=== PATIENT | male | born 1970 | race Caucasian/White ===

== ENCOUNTER 2019-10-06 08:19 | Inpatient (IN) | payer OTHER, SELFPAY ==
[2019-10-06] VITALS (13 sets, daily range): BP systolic 110–145; BP diastolic 81–102; PULSE 71–97; RESP 18–36; TEMP 37.1–37.8; O2SAT 94–99; BMI 28.0
--- NOTE | ~2019-10-06 | XR_ITS ---
EXAMINATION: XR chest 1V portable DATE: 10/06/2019 09:17 INDICATION: Dyspnea and hypoxia. TECHNIQUE: frontal view of the chest was obtained. COMPARISON: None FINDINGS: Indistinct interstitial and mild patchy airspace opacities in the bilateral mid to lower lung zones m ost prominent at the left midlung zone. No pleural effusion or pneumothorax. The cardiomediastinal si lhouette is normal. Mild thoracic spondylosis. IMPRESSION: 1. Bilateral lung disease most prominent in the left midlung which could represent pulmonary edema an d/or pneumonia. Reviewed, dictated and finalized at location A. IMPRESSION: 1. Bilateral lung disease most prominent in the left midlung which could repres ent pulmonary edema and/or pneumonia.
--- NOTE | ~2019-10-06 | XR_ITS ---
EXAMINATION: XR chest 1V portable DATE: 10/07/2019 05:40 INDICATION: Pneumonia with bilateral pulmonary infiltrates and dyspnea. TECHNIQUE: frontal view of the chest was obtained. COMPARISON: Chest radiograph dated 10/06/2019 FINDINGS: No significant interval change in bilateral patchy airspace opacities consistent with multifocal pneu monia. No pleural effusion or pneumothorax. The cardiomediastinal silhouette is normal. Visualized kalpana azam and soft tissues are unremarkable. IMPRESSION: 1. No significant interval change in bilateral multifocal pneumonia. Reviewed, dictated and finalized at location A.
--- NOTE | ~2019-10-06 | XR_ITS ---
EXAMINATION: XR chest 1V portable DATE: 10/08/2019 05:32 INDICATION: Pulmonary infiltrates. TECHNIQUE: frontal view of the chest was obtained. COMPARISON: Chest radiograph dated 10/07/2019 FINDINGS: No significant change in bilateral patchy airspace opacities consistent with multifocal pneumonia. No pleural effusion or pneumothorax. The cardiomediastinal silhouette is normal. Visualized bones and s oft tissues are unremarkable. IMPRESSION: 1. No significant interval change in bilateral multifocal pneumonia. Reviewed, dictated and finalized at location A.
--- NOTE | ~2019-10-06 | XR_ITS ---
EXAMINATION: XR chest 1V portable DATE: 10/10/2019 09:19 INDICATION: Pneumonia. TECHNIQUE: A single frontal view of the chest was obtained. COMPARISON: Chest single view 10/08/2019 FINDINGS: There are patchy airspace opacities in all lung zones bilaterally. No pleural effusion or p neumothorax. The heart size is normal. IMPRESSION: 1. Diffuse lung disease with interval improvement, consistent with pneumonia. Reviewed, dictated and finalized at location A.
--- NOTE | 2019-10-06 08:21 | ED.URI ---
HPI - URI/Sore Throat General Chief Complaint: Upper Respiratory Infection Stated Complaint: sob/fever/cough Time Seen by Provider: 10/06/19 08:19 Source: patient and EMS Mode of arrival: EMS Limitations: no limitations History of Present Illness HPI Narrative: Patient is a 48-year-old male with no past medical history who presents for evaluation of shortness of breath. Patient states that he has been feeling unwell over the past 10 days, with worsening shortness of breath over the past 72 hours. Patient reports he has been in touch with his primary care physician Dr. Saucedo, prompted him to come to the emergency department for evaluation of shortness of breath. Patient reports fever, myalgias, fatigue, dry cough. No history of asthma, no recent sick contacts or recent travel. Patient has been self isolating at home over the past 10 days. Patient does not smoke. No history of drug use. No immunocompromised state. Patient denies any chest pain. No leg swelling. Related Data Home Medications Medication Instructions Recorded Confirmed atorvastatin 20 mg PO DAILY 10/06/19 lisinopril 10 mg PO DAILY 10/06/19 Allergies Allergy/AdvReac Type Severity Reaction Status Date / Time acetaminophen Allergy Vomiting Verified 10/06/19 08:26 Review of Systems Review of Systems: Narrative: CONSTITUTIONAL: Reports fever, chills, diaphoresis EYES: Denies visual changes, redness, or discharge. ENT: Earlier sore throat, now resolved, denies otalgia CARDIOVASCULAR: Denies chest pain, palpitations, or edema. RESPIRATORY: Reports cough and shortness of breath GASTROINTESTINAL: Denies abdominal pain, nausea, vomiting, denies diarrhea GENITOURINARY: Denies dysuria or hematuria. SKIN: Denies rash or itching. MUSCULOSKELETAL: Reports myalgias NEUROLOGIC: Denies headache, numbness, or weakness. [facility] Past Medical History Medical History (Updated 10/06/19 @ 10:17 by Rachael Carlin MD) Hypertension Social History Social History (Updated 10/06/19 @ 09:32 by Rachael Carlin MD) Smoking status: Never smoker Second hand tobacco smoke exposure: No Alcohol intake: never Substance use: never Gender identity (if verbalized by the patient): Male Comments PCP: Dr. Saucedo Exam Narrative: Exam Narrative: GENERAL: Awake, alert, conversant HEAD: Normocephalic, atraumatic. EYES: EOMI, conjunctiva clear ENT: Nares patent. Mucous membranes moist. NECK: Full range of motion CHEST: Hypoxic respiratory distress, speaking in full sentences, tachypnea HEART: Regular rate ABDOMEN: Non distended, non tender EXTREMITIES: Normal range of motion. No edema. SKIN: Warm, dry, no rash. NEURO: No focal deficits. Alert and oriented x3. Course Consultations Consultation #1: Discussed case with Dr. Saini and is aware of patient, no ICU admission at this point as patient tolerating 2L via NC Date: 10/06/19 Time: 09:11 Consultation #2: Discussed case with Dr. Zuniga and accepted admission. Date: 10/06/19 Time: 09:35 Vital Signs Vital signs: Vital Signs Temperature 37.6 C H 10/06/19 08:16 Pulse Rate 96 10/06/19 08:16 Respiratory Rate 30 H 10/06/19 08:16 Blood Pressure 145/102 H 10/06/19 08:16 Pulse Oximetry 97 10/06/19 08:16 Temperature 37.6 C H 10/06/19 08:16 Pulse Rate 82 10/06/19 10:53 Respiratory Rate 23 H 10/06/19 10:53 Blood Pressure 123/89 10/06/19 10:53 Pulse Oximetry 99 10/06/19 10:53 MDM - URI/Sore Throat MDM Narrative Medical decision making narrative: Patient presented to the emergency department for evaluation of shortness of breath. At the time of initial assessment, ABCs are intact, patient is in moderate respiratory distress, hypoxic on room air and placed on 2 L via nasal cannula which improved his oxygen saturations. Patient is febrile here influenza swabs are negative. He is tachypneic, and has evidence of bilateral pneumonia on chest x-ray. Patient symptoms with lymphopenia he
--- NOTE | 2019-10-06 08:22 | ECG_ITS ---
Measurements Intervals [place] Rate: 92 P: 35 OH: 130 QRS: -4 QRSD: 105 T: 22 QT: 350 QTc: 435 Interpretive Statements SINUS RHYTHM BORDERLINE T WAVE ABNORMALITY- INFERIOR LEADS BASELINE ARTIFACT- V1-V2 BORDERLINE ECG Electronically Signed On 10-06-2019 9:01:26 CDT by Jerry Swartz D.O.
[2019-10-06] MEDS: SODIUM CHLORIDE 0.9% IV 500 ML 999 ML IV CONT (08:45)
[2019-10-06 08:51] LABS: Basophils Percent Auto 0.1 % (0.2-1.2); Hematocrit 43.8 % (42.0-52.0); Hemoglobin 14.6 g/dL (14.0-18.0); Immature Granulocyte Absolute 0.03 K/mm3 (0.00-0.031); Immature Granulocyte Percent A 0.4 % (0-0.5); Lymphocytes Absolute Auto 1.48 K/mm3 (0.9-3.2); Lymphocytes Percent Auto 17.4 % (18.3-44.2); Mean Corpuscular HGB Conc 33.3 g/dl (32-36); Mean Corpuscular Volume 89.9 fl (80-100); Monocytes Absolute Auto 0.6 K/mm3 (0.1-0.6); Neutrophils Absolute Auto 6.4 K/mm3 (1.3-6.7); Neutrophils Percent Auto 75.1 % (45.5-73.1); Platelet Count Result 298 k/mm3 (150-375); Red Blood Count 4.87 M/mm3 (4.6-6.20); White Blood Count 8.5 K/mm3 (4.5-10.0)
[2019-10-06 08:55] LABS: Alveolar/Arterial O2 Gradient 63.4 mmHg; Base Excess ABG 1.3 mEq/l (+/-2.0); Carboxyhemoglobin 0.6 % THb (0-2.0); Fractional Inspired Oxygen 28 %; HCO3 ABG 24.1 mEq/l (22.0-26.0); Methemoglobin ABG 0.4 %THb (0-1.5); Oxygen Content ABG 20.6 %vol (16.0-22.0); Oxygen Saturation ABG 97.8 % (95.0-100.0); Oxyhemoglobin 96.2 % THb (90.0-100.0); PCO2 ABG 33.3 mmHg (35.0-45.0); PO2 ABG 96.9 mmHg (80.0-100.0); PO2 FiO2 Ratio Arterial Blood 3.46 %; Reduced Hemoglobin 2.8 %THb (0-5.0); Total Hemoglobin 15.2 g/dL (12.0-18.0); pH ABG 7.478 (7.350-7.450)
[2019-10-06 08:57] LABS: Device NASAL CANNULA; Modified Allen's Test Pass; Site Drawn LEFT RADIAL
[2019-10-06 09:02] LABS: Prothrombin Time 12.5 Seconds (11.1-14.7)
[2019-10-06 09:03] LABS: Partial Thromboplastin Time 26.4 SECONDS (22.3-36.8)
[2019-10-06 09:08] LABS: Alanine Aminotransferase 24 U/L (4-50); Albumin Level 4.1 g/dL (3.5-5.1); Alkaline Phosphatase 52 U/L (38-126); Aspartate Amino Transferase 54 U/L (17-59); Bilirubin,Total 0.7 mg/dL (0.2-1.3); Blood Urea Nitrogen 9 mg/dL (9-20); Calcium 8.1 mg/dL (8.4-10.2); Carbon Dioxide 22 mmol/L (22-30); Chloride 97 mmol/L (98-107); Estimated CRCL calculation 81 ml/min; Estimated Glomerular Filt Rate > 60; Glucose 139 mg/dL (75-110); Lactate Dehydrogenase 1035 U/L (313-618); Sodium 130 mmol/L (137-145)
[2019-10-06 09:14] LABS: NT Pro B Type Natriuretic Pept 27 PG/ML (5-100); Troponin I < 0.012 ng/mL (0.000-0.034)
[2019-10-06 09:23] LABS: CRP 14.1 mg/dL (<1.0)
--- NOTE | 2019-10-06 10:14 | PC.NURSE ---
Covid 19 swab obtained and sent to lab via [facility] at this time.
--- NOTE | 2019-10-06 11:32 | ADMGEN ---
This patient, Jim Rogers, was admitted to Intensive Care Unit-4. Patient/family oriented to hospital policies and general routines including ID bracelet, bed and alarms, visiting hours, pain management, procedures, bathroom and other care routines, personal items, smoking policy, room service/diet, and visiting hours. Valuables list has been completed. Information on how to activate the Rapid Response Team has been discussed. Patient/Family are encouraged to report perceived risks to care and to ask questions if they do not understand what they are told or what they should do.
--- NOTE | 2019-10-06 12:18 | PM.IMHP ---
H&P: HPI History of Present Illness Chief complaint: Pnemonia/respiratory failure Narrative: Date of visit 1129 Jim Rogers is a 48 year old hypertensive white male presented to the emergency room with increasing shortness breath over last 24-48 hours. He has been ill minimal cough fever myalgias for about 12 days. He has been in touch with his primary care provider and has been instructed to self quarantine. He has had fever as high as 102 and nausea but no diarrhea.. 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 No chest pain no hemoptysis and he is a nonsmoker. Review of Systems Review of Systems: Narrative: Constitutional weight is stable appetite was good until the present illness EYE no double vision or [place] Mouth no pharyngitis laryngitis Pulmonary as per present illness shortness of breath dry cough Cardio no chest pain or palpitation or pedal edema GI as per present no diarrhea abnormalities are medication chest no dysuria no hematuria Muscle skeletal no particular joint discomfort Integument no skin breakdown or rashes psych no overt depression PMFSH Past Medical History Medical History (Updated 10/06/19 @ 12:34 by Myles Zuniga MD) Hypertension Inguinal hernia Family History Family History (Updated 10/06/19 @ 12:07 by Myles Zuniga MD) Father Hypertension Mother Hypertension Other Unknown family medical history Social History Social History (Updated 10/06/19 @ 09:32 by Rachael Carlin MD) Smoking status: Never smoker Second hand tobacco smoke exposure: No Alcohol intake: never Substance use: never Gender identity (if verbalized by the patient): Male Spiritual care concerns: No Agree to blood products: Yes Meds Home Medications and Allergies Home Medications Medication Instructions Recorded Confirmed Type atorvastatin 20 mg PO DAILY 10/06/19 10/06/19 History lisinopril 10 mg PO DAILY 10/06/19 10/06/19 History Allergies Allergy/AdvReac Type Severity Reaction Status Date / Time acetaminophen Allergy Vomiting Verified 10/06/19 08:26 Vital Signs Vital Signs - 24 hr 10/06/19 08:16 10/06/19 09:38 10/06/19 10:14 Temperature 37.6 C H Pulse Rate 96 97 86 Respiratory Rate 30 H 25 H 35 H Blood Pressure 145/102 H 135/90 142/92 H Pulse Oximetry 97 94 97 10/06/19 10:53 Temperature Pulse Rate 82 Respiratory Rate 23 H Blood Pressure 123/89 Pulse Oximetry 99 Exam Narrative: Exam Narrative: Blood pressure 132/86 pulse is 86 and regular respirations 30 per minute satting 96% on 2 L nasal cannula temp 37.1? Pupils equal reactive to light sclera anicteric Patient is wearing a mask not removed check is mouth Neck supple no adenopathy thyromegaly or carotid bruits Lungs clear with very faint basilar crackles posteriorly no wheezing CV regular rate rhythm no murmurs Abdomen is soft nontender no masses Extremities without edema distal pulses are 2+ Neuro alert pleasant cooperative no focal deficits cranial nerves 2-12 are intact Integument no skin breakdown rashes Psych affect appropriate H&P: Results Labs Labs: Short CBC 10/06/19 Range/Units 08:40 WBC 8.5 (4.5-10.0) K/mm3 Hgb 14.6 (14.0-18.0) g/dL Hct 43.8 (42.0-52.0) % Plt Count 298 (150-375) k/mm3 BMP 10/06/19 08:40 Sodium 130 L Potassium 4.0 Chloride 97 L Carbon Dioxide 22 BUN 9 Creatinine 0.80 Glucose 139 H Calcium 8.1 L Cardiac Enzymes 10/06/19 Range/Units 08:40 Troponin I < 0.012 (0.000-0.034) ng/mL Liver Function 10/06/19 Range/Units 08:40 Total Bilirubin 0.7 (0.2-1.3) mg/dL AST 54 (17-59) U/L ALT 24 (4-50) U/L Alkaline Phosphatase 52 (38-126) U/L Albumin 4.1 (3.5-5.1) g/dL Assessment and Plan Assessment and plan (1) Acu
[2019-10-06 13:15] LABS: Add Urine Microscopic? YES; Appearance Urine Clear (Clear); Bilirubin Urine Negative (Negative); Blood Urine 1+ (Negative); Color Urine Straw (Yellow); Glucose Urine UA Negative (Negative); Ketones Urine Negative (Negative); Leukocyte Esterase Ur Negative LEU/UL (NEGATIVE); Nitrate Urine Negative (Negative); Protein Urine Negative (Negative); Urobilinogen Urine Negative mg/dL (<2.0); WBC Urine 0-3 /hpf (0-3)
[2019-10-06 13:18] LABS: Specific Grav Ur 1.004 (1.001-1.035)
[2019-10-06 13:38] LABS: Sodium Urine Random 17 meq/L
[2019-10-06] MEDS: ENOXAPARIN 40 MG/0.4 ML SYRINGE SUB-Q (21:22)
[2019-10-07] VITALS (14 sets, daily range): BP systolic 100–122; BP diastolic 76–97; PULSE 66–86; RESP 18–36; TEMP 36.9–37.2; O2SAT 93–99
[2019-10-07 04:43] LABS: Basophils Percent Auto 0.5 % (0.2-1.2); Eosinophils Absolute Auto 0.1 K/mm3 (0-0.3); Eosinophils Percent Auto 1.3 % (0-4.4); Hematocrit 46.5 % (42.0-52.0); Immature Granulocyte Absolute 0.03 K/mm3 (0.00-0.031); Immature Granulocyte Percent A 0.4 % (0-0.5); Lymphocytes Absolute Auto 3.75 K/mm3 (0.9-3.2); Lymphocytes Percent Auto 43.8 % (18.3-44.2); Mean Corpuscular HGB Conc 32.3 g/dl (32-36); Mean Corpuscular Hemoglobin 29.8 pg (26-34); Mean Corpuscular Volume 92.3 fl (80-100); Mean Platelet Volume 9.8 fl (7.4-10.4); Monocytes Absolute Auto 0.9 K/mm3 (0.1-0.6); Monocytes Percent Auto 10.9 % (2.6-8.5); Neutrophils Absolute Auto 3.7 K/mm3 (1.3-6.7); Neutrophils Percent Auto 43.1 % (45.5-73.1); Platelet Count Result 336 k/mm3 (150-375); Red Blood Count 5.04 M/mm3 (4.6-6.20); Red Cell Distribution Width 13.2 % (11.5-14.5); White Blood Count 8.6 K/mm3 (4.5-10.0)
[2019-10-07 04:55] LABS: Alanine Aminotransferase 27 U/L (4-50); Albumin Level 3.8 g/dL (3.5-5.1); Alkaline Phosphatase 49 U/L (38-126); Aspartate Amino Transferase 57 U/L (17-59); Bilirubin,Total 0.7 mg/dL (0.2-1.3); Blood Urea Nitrogen 11 mg/dL (9-20); Calcium 8.3 mg/dL (8.4-10.2); Carbon Dioxide 25 mmol/L (22-30); Chloride 101 mmol/L (98-107); Estimated CRCL calculation 81 ml/min; Estimated Glomerular Filt Rate > 60; Glucose 96 mg/dL (75-110); Lactate Dehydrogenase 1041 U/L (313-618); Potassium 4.4 mmol/L (3.4-5.0); Sodium 136 mmol/L (137-145)
[2019-10-07] MEDS: lisinopriL 10 MG TABLET PO (09:01)
[2019-10-07] MEDS: ATORVASTATIN 20 MG TABLET PO (09:01)
--- NOTE | 2019-10-07 14:23 | PM.IMPN ---
Progress Note: A&P Assessment and Plan (1) Acute respiratory failure with hypoxemia: Code(s): J96.01 - Acute respiratory failure with hypoxia Status: Acute Assessment and Plan: Secondary to pneumonia.. supported with 2 L nasal cannula. Continue to monitor treat underlying condition Stable and no worsening of condition today (2) Bilateral pneumonia: Qualifiers: Lung location: unspecified part of lung Pneumonia type: due to unspecified organism Qualified Code(s): J18.9 - Pneumonia, unspecified organism Code(s): J18.9 - Pneumonia, unspecified organism Status: Acute Assessment and Plan: Highly suspicious for covid with bilateral infiltrates, hypoxia, elevated LDH, (lymphopenia has resolved) Check urine antigens, blood cultures still pending, and empirically treating for community-acquired pneumonia with ceftriaxone and azithromycin (3) Hypertension: Code(s): I10 - Essential (primary) hypertension Status: Acute Assessment and Plan: Pressure adequately controlled continue GAVIOTA-inhibitor but decreased to only 5 daily since pressure is lower (4) Hyperlipidemia: Code(s): E78.5 - Hyperlipidemia, unspecified Status: Acute Assessment and Plan: Continue statin (5) DVT prophylaxis: Code(s): Z29.9 - Encounter for prophylactic measures, unspecified Status: Acute Assessment and Plan: Lovenox Subjective Date/time seen: 10/07/19 14:23 Interval history: Date of visit 10/06. 48-year-old hypertensive white male admitted with acute respiratory failure with hypoxia and bilateral pneumonia compatible with SARS-co-19 infection. Slept fairly well and no sob at rest. minimal cough and no GI symptoms Exam Narrative: Exam Narrative: Blood pressure 104/86 pulse is 82, respirations 24 per minute, temp of 36.9? and a T-max of 37.5? saturating 94% on 2 L Pupils equal reactive to light sclera anicteric Lungs clear hear no crackles CV regular rate rhythm Abdomen is soft nontender Extremities without edema good distal pulses Neuro alert cooperative no focal deficits Objective Data Vital Signs Vital Signs: Vital Signs - 24 hr 10/06/19 15:36 10/06/19 16:00 10/06/19 18:00 Temperature 37.8 C H Pulse Rate 82 91 93 Respiratory Rate 25 H Blood Pressure 118/81 Pulse Oximetry 94 10/06/19 20:00 10/06/19 21:29 10/06/19 22:00 Temperature 37.7 C H Pulse Rate 75 71 Respiratory Rate 18 Blood Pressure 110/94 H Pulse Oximetry 95 96 10/07/19 00:00 10/07/19 02:00 10/07/19 04:00 Temperature 37.2 C 37.1 C Pulse Rate 72 71 81 Respiratory Rate 19 18 Blood Pressure 119/86 118/97 H Pulse Oximetry 96 93 10/07/19 06:00 10/07/19 07:47 10/07/19 08:00 Temperature 36.9 C Pulse Rate 75 83 Respiratory Rate 24 H Blood Pressure 117/83 Pulse Oximetry 98 97 10/07/19 10:00 10/07/19 12:00 Temperature 36.9 C Pulse Rate 79 85 Respiratory Rate 26 H Blood Pressure 100/86 Pulse Oximetry 94 Intake/Output Intake/Output: Intake & Output 10/04/19 10/05/19 10/06/19 10/07/19 23:59 23:59 23:59 23:59 Intake Total 800 880 Output Total 550 500 Balance 250 380 Meds/Results Medications: Active Medications Generic Name Dose Route Start Last Admin Trade Name Freq PRN Reason Stop Dose Admin Atorvastatin Calcium 20 mg 10/07/19 09:00 10/07/19 09:01 Lipitor PO 20 mg DAILY [facility] Administration Enoxaparin Sodium 40 mg 10/06/19 21:00 10/06/19 21:22 Lovenox SUB-Q 40 mg HS [facility] Administration Azithromycin 500 mg in 250 mls @ 250 mls/hr 10/07/19 10:00 10/07/19 12:08 Zithromax IVPB 250 mls/hr DAILY@1000 [facility] Administration Lisinopril 5 mg 10/07/19 14:21 Prinivil PO DAILY [facility] Radiology Results: ITS Impressions Chest X-Ray 10/07/19 06:56 IMPRESSION: 1. No significant interval change in bilateral multifocal pneumonia. Labs Labs: Laboratory Results - la
[2019-10-07] MEDS: ENOXAPARIN 40 MG/0.4 ML SYRINGE SUB-Q (20:49)
[2019-10-08] VITALS (12 sets, daily range): BP systolic 112–125; BP diastolic 75–92; PULSE 65–91; RESP 17–30; TEMP 36.7–37.7; O2SAT 91–98
[2019-10-08] MEDS: ATORVASTATIN 20 MG TABLET PO (11:37)
[2019-10-08] MEDS: lisinopriL 5 MG TABLET PO (11:37)
[2019-10-08 16:11] LABS: Procalcitonin <0.10 ng/mL (<0.10)
--- NOTE | 2019-10-08 16:14 | PM.IMPN ---
Progress Note: A&P Assessment and Plan (1) Acute respiratory failure with hypoxemia: Code(s): J96.01 - Acute respiratory failure with hypoxia Status: Acute Assessment and Plan: Secondary to pneumonia.. supported with 2 L nasal cannula. Continue to monitor treat underlying condition Stable and no worsening of condition. Date of visit 10/07. 48-year-old hypertensive white male admitted with acute respiratory failure with hypoxia and bilateral pneumonia compatible with SARS-co-19 infection. Slept fairly well and no sob at rest. minimal cough and no GI symptoms, denies any fever or chills, Covid 19 test is pending, patient is treated for community-acquired pneumonia with Rocephin azithromycin Repeat chest x-ray today shows No significant interval change in bilateral multifocal pneumonia. Will continue present management reassess tomorrow (2) Bilateral pneumonia: Qualifiers: Lung location: unspecified part of lung Pneumonia type: due to unspecified organism Qualified Code(s): J18.9 - Pneumonia, unspecified organism Code(s): J18.9 - Pneumonia, unspecified organism Status: Acute Assessment and Plan: Highly suspicious for covid with bilateral infiltrates, hypoxia, elevated LDH, (lymphopenia has resolved) Check urine antigens, blood cultures still pending, and empirically treating for community-acquired pneumonia with ceftriaxone and azithromycin (3) Hypertension: Code(s): I10 - Essential (primary) hypertension Status: Acute Assessment and Plan: Pressure adequately controlled continue GAVIOTA-inhibitor but decreased to only 5 daily since pressure is lower (4) Hyperlipidemia: Code(s): E78.5 - Hyperlipidemia, unspecified Status: Acute Assessment and Plan: Continue statin (5) DVT prophylaxis: Code(s): Z29.9 - Encounter for prophylactic measures, unspecified Status: Acute Assessment and Plan: Lovenox Subjective Date/time seen: 10/08/19 16:14 Interval history: Date of visit 10/07. 48-year-old hypertensive white male admitted with acute respiratory failure with hypoxia and bilateral pneumonia compatible with SARS-co-19 infection. Slept fairly well and no sob at rest. minimal cough and no GI symptoms, denies any fever or chills, Covid 19 test is pending, patient is treated for community-acquired pneumonia with Rocephin azithromycin Repeat chest x-ray today shows No significant interval change in bilateral multifocal pneumonia. Will continue present management reassess tomorrow Review of Systems Review of Systems: All systems reviewed & are unremarkable except as noted in HPI and below Exam Const: General: comfortable and no acute distress HENMT: General nose exam: Normal nares present Mouth: Yes moist mucous membranes Eyes: General: appearance normal, both eyes and all related structures Sclera: sclerae normal Neck: Other: No retraction Resp: Other: Bilateral poor air entry with rhonchi Cardio: Rate: regular rate Rhythm: regular rhythm Skin: General skin exam: normal color Neuro: Speech: normal speech Sensory Exam: normal sensation Extrem: General: normal to inspection Psych: Affect: Anxious affect present Objective Data Vital Signs Vital Signs: Vital Signs - 24 hr 10/07/19 18:00 10/07/19 20:00 10/07/19 22:00 Temperature 98.5 F Pulse Rate 82 80 70 Respiratory Rate 18 Blood Pressure 122/76 Pulse Oximetry 99 10/07/19 22:41 10/08/19 00:00 10/08/19 02:00 Temperature 98.7 F Pulse Rate 66 68 68 Respiratory Rate 20 19 Blood Pressure 114/75 Pulse Oximetry 96 96 10/08/19 04:00 10/08/19 06:00 10/08/19 08:00 Temperature 98.4 F 98.5 F Pulse Rate 75 66 76 Respiratory Rate 18 30 H Blood Pressure 113/83 112/84 Pulse Oximetry 97 91 10/08/19 10:00 10/08/19 12:00 10/08/19 14:00 Temperature 98.3 F Pulse Rate 85 72 79 Respiratory Rate 17 Blood Pressure 118/90 Pulse Oxi
[2019-10-08] MEDS: ENOXAPARIN 40 MG/0.4 ML SYRINGE SUB-Q (20:02)
[2019-10-09] VITALS (9 sets, daily range): BP systolic 102–143; BP diastolic 71–99; PULSE 68–85; RESP 16–27; TEMP 37.1–37.9; O2SAT 95–97
[2019-10-09] MEDS: lisinopriL 5 MG TABLET PO (07:51)
[2019-10-09] MEDS: ATORVASTATIN 20 MG TABLET PO (07:52)
[2019-10-09 09:04] LABS: Hematocrit 41.9 % (42.0-52.0); Hemoglobin 13.4 g/dL (14.0-18.0); Mean Corpuscular Hemoglobin 29.7 pg (26-34); Mean Corpuscular Volume 92.9 fl (80-100); Mean Platelet Volume 9.7 fl (7.4-10.4); Platelet Count Result 452 k/mm3 (150-375); Red Blood Count 4.51 M/mm3 (4.6-6.20); White Blood Count 11.3 K/mm3 (4.5-10.0)
[2019-10-09 09:20] LABS: Alanine Aminotransferase 27 U/L (4-50); Albumin Level 3.8 g/dL (3.5-5.1); Alkaline Phosphatase 48 U/L (38-126); Aspartate Amino Transferase 37 U/L (17-59); Bilirubin,Total 0.7 mg/dL (0.2-1.3); Blood Urea Nitrogen 12 mg/dL (9-20); Calcium 8.7 mg/dL (8.4-10.2); Carbon Dioxide 29 mmol/L (22-30); Chloride 102 mmol/L (98-107); Estimated CRCL calculation 81 ml/min; Estimated Glomerular Filt Rate > 60; Glucose 100 mg/dL (75-110); Potassium 4.5 mmol/L (3.4-5.0); Sodium 137 mmol/L (137-145)
--- NOTE | 2019-10-09 17:53 | PM.IMPN ---
Progress Note: A&P Assessment and Plan (1) Acute respiratory failure with hypoxemia: Code(s): J96.01 - Acute respiratory failure with hypoxia Status: Acute Assessment and Plan: Secondary to pneumonia.. supported with 2 L nasal cannula. Continue to monitor treat underlying condition Stable and no worsening of condition. Date of visit 10/08. 48-year-old hypertensive white male admitted with acute respiratory failure with hypoxia and bilateral pneumonia compatible with SARS-co-19 infection. Slept fairly well and no sob at rest. minimal cough and no GI symptoms, denies any fever or chills, Covid 19 test is pending, patient is treated for community-acquired pneumonia with Rocephin azithromycin Repeat chest x-ray on 10/07 showed No significant interval change in bilateral multifocal pneumonia. Patient is positive for Covid 19, Will continue present management will repeat chest x-ray reassess tomorrow (2) Bilateral pneumonia: Qualifiers: Lung location: unspecified part of lung Pneumonia type: due to unspecified organism Qualified Code(s): J18.9 - Pneumonia, unspecified organism Code(s): J18.9 - Pneumonia, unspecified organism Status: Acute Assessment and Plan: Highly suspicious for covid with bilateral infiltrates, hypoxia, elevated LDH, (lymphopenia has resolved) Check urine antigens, blood cultures still pending, and empirically treating for community-acquired pneumonia with ceftriaxone and azithromycin (3) Hypertension: Code(s): I10 - Essential (primary) hypertension Status: Acute Assessment and Plan: Pressure adequately controlled continue GAVIOTA-inhibitor but decreased to only 5 daily since pressure is lower (4) Hyperlipidemia: Code(s): E78.5 - Hyperlipidemia, unspecified Status: Acute Assessment and Plan: Continue statin (5) DVT prophylaxis: Code(s): Z29.9 - Encounter for prophylactic measures, unspecified Status: Acute Assessment and Plan: Lovenox Subjective Date/time seen: 10/09/19 17:53 Interval history: Date of visit 10/08. 48-year-old hypertensive white male admitted with acute respiratory failure with hypoxia and bilateral pneumonia compatible with SARS-co-19 infection. Slept fairly well and no sob at rest. minimal cough and no GI symptoms, denies any fever or chills, Covid 19 test is pending, patient is treated for community-acquired pneumonia with Rocephin azithromycin Repeat chest x-ray on 10/07 showed No significant interval change in bilateral multifocal pneumonia. Patient is positive for Covid 19, Will continue present management will repeat chest x-ray reassess tomorrow Review of Systems Review of Systems: All systems reviewed & are unremarkable except as noted in HPI and below Exam Const: General: comfortable and no acute distress HENMT: General nose exam: Normal nares present Mouth: Yes moist mucous membranes Eyes: General: appearance normal, both eyes and all related structures Sclera: sclerae normal Neck: Other: No retraction Resp: Other: Bilateral poor air entry with rhonchi Cardio: Rate: regular rate Rhythm: regular rhythm Skin: General skin exam: normal color Neuro: Speech: normal speech Sensory Exam: normal sensation Extrem: General: normal to inspection Psych: Affect: Anxious affect present Objective Data Vital Signs Vital Signs: Vital Signs - 24 hr 10/08/19 18:00 10/08/19 20:00 10/08/19 22:00 Temperature 99.8 F H Pulse Rate 82 83 70 Respiratory Rate 25 H Blood Pressure 125/86 Pulse Oximetry 98 10/09/19 00:00 10/09/19 02:00 10/09/19 04:00 Temperature 99.6 F 99 F Pulse Rate 68 72 77 Respiratory Rate 18 20 24 H Blood Pressure 112/78 106/75 102/75 Pulse Oximetry 96 96 95 10/09/19 06:00 10/09/19 07:50 10/09/19 08:00 Temperature 98.7 F Pulse Rate 69 74 83 Respiratory Rate 18 27 H Blood Pressure 107/71 115/83 Pulse Oximetry 96 96 10/08
[2019-10-09] MEDS: ENOXAPARIN 40 MG/0.4 ML SYRINGE SUB-Q (21:11)
[2019-10-10 05:35] VITALS: BP 124/92; PULSE 76; RESP 18; TEMP 37.2; O2SAT 95
[2019-10-10 06:14] LABS: Hematocrit 42.3 % (42.0-52.0); Hemoglobin 13.8 g/dL (14.0-18.0); Mean Corpuscular HGB Conc 32.6 g/dl (32-36); Mean Corpuscular Hemoglobin 30.3 pg (26-34); Mean Corpuscular Volume 92.8 fl (80-100); Mean Platelet Volume 9.5 fl (7.4-10.4); Platelet Count Result 489 k/mm3 (150-375); Red Blood Count 4.56 M/mm3 (4.6-6.20); Red Cell Distribution Width 12.6 % (11.5-14.5); White Blood Count 11.1 K/mm3 (4.5-10.0)
[2019-10-10 06:21] LABS: D Dimer 0.37 ug/mL (<0.48)
[2019-10-10 06:23] LABS: Alanine Aminotransferase 28 U/L (4-50); Albumin Level 3.8 g/dL (3.5-5.1); Alkaline Phosphatase 46 U/L (38-126); Aspartate Amino Transferase 43 U/L (17-59); Bilirubin,Total 0.4 mg/dL (0.2-1.3); Blood Urea Nitrogen 12 mg/dL (9-20); Calcium 8.8 mg/dL (8.4-10.2); Carbon Dioxide 30 mmol/L (22-30); Chloride 103 mmol/L (98-107); Estimated CRCL calculation 81 ml/min; Estimated Glomerular Filt Rate > 60; Glucose 104 mg/dL (75-110); Potassium 4.2 mmol/L (3.4-5.0); Sodium 136 mmol/L (137-145)
[2019-10-10 08:00] VITALS: BP 129/73; PULSE 72; RESP 18; TEMP 36.9; O2SAT 96; O2SAT 98
[2019-10-10] MEDS: lisinopriL 5 MG TABLET PO (08:35)
[2019-10-10] MEDS: ATORVASTATIN 20 MG TABLET PO (08:35)
[2019-10-10 12:00] VITALS: TEMP 36.9
--- NOTE | 2019-10-10 14:46 | PM.DS ---
DS: Diagnosis Admitting Diagnosis Admitting Diagnosis: Acute respiratory failure with hypoxia Discharge Diagnosis (1) Acute respiratory failure with hypoxemia: Code(s): J96.01 - Acute respiratory failure with hypoxia Status: Acute Assessment and Plan: Secondary to pneumonia.. supported with 2 L nasal cannula. Continue to monitor treat underlying condition Stable and no worsening of condition. Date of visit 10/08. 48-year-old hypertensive white male admitted with acute respiratory failure with hypoxia and bilateral pneumonia compatible with SARS-co-19 infection. Slept fairly well and no sob at rest. minimal cough and no GI symptoms, denies any fever or chills, Covid 19 test is pending, patient is treated for community-acquired pneumonia with Rocephin azithromycin Repeat chest x-ray on 10/07 showed No significant interval change in bilateral multifocal pneumonia. Patient is positive for Covid 19, Will continue present management will repeat chest x-ray reassess tomorrow Discussed with patient in detail regarding discharge planning and he has agreed to isolate himself for atleast 72 hours as his initial symptoms started on September 24, 2019, patient is instructed to monitor his fever if his fever reoccurs or persist to keep himself islated, he is to contact his primary care for further instruction in the event he his unable to get hold of his primary care to call 911 and let them know he is Covid 19 positive and has reoccuring fever. He should not venture out until he is communicate with his primary care provider. I spoke with Dr. Caceres he is aware of the patient, he will contact the patient and monitor. (2) Bilateral pneumonia: Qualifiers: Lung location: unspecified part of lung Pneumonia type: due to unspecified organism Qualified Code(s): J18.9 - Pneumonia, unspecified organism Code(s): J18.9 - Pneumonia, unspecified organism Status: Acute Assessment and Plan: Highly suspicious for covid with bilateral infiltrates, hypoxia, elevated LDH, (lymphopenia has resolved) Check urine antigens, blood cultures still pending, and empirically treating for community-acquired pneumonia with ceftriaxone and azithromycin (3) Hypertension: Code(s): I10 - Essential (primary) hypertension Status: Acute Assessment and Plan: Pressure adequately controlled continue GAVIOTA-inhibitor but decreased to only 5 daily since pressure is lower (4) Hyperlipidemia: Code(s): E78.5 - Hyperlipidemia, unspecified Status: Acute Assessment and Plan: Continue statin (5) DVT prophylaxis: Code(s): Z29.9 - Encounter for prophylactic measures, unspecified Status: Acute Assessment and Plan: Lovenox DS: Summary Hospital Course Reason for hospitalization: Date of visit 10/05, 1130 Jim Rogers is a 48 year old hypertensive white male presented to the emergency room with increasing shortness breath over last 24-48 hours. He has been ill minimal cough fever myalgias for about 12 days. He has been in touch with his primary care provider and has been instructed to self quarantine. He has had fever as high as 102 and nausea but no diarrhea.. 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 No chest pain no hemoptysis and he is a nonsmoker. Hospital Course: Secondary to pneumonia.. supported with 2 L nasal cannula. Continue to monitor treat underlying condition Stable and no worsening of condition. Date of visit 10/08. 48-year-old hypertensive white male admitted with acute respiratory failure with hypoxia and bilateral pneumonia compatible with SARS-co-19 infection. Slept fairly well and no sob at rest. minimal cough and no GI symptoms, denies any fever or chills, Covid 19 test is pending, patient is treated for community-
--- NOTE | 2019-10-10 16:18 | PC.NURSE ---
pt discharged via w/c at 1605, d/c instructions discussed with verbal understanding giving in return,all personal belongings sent with pt
== END 2019-10-10 18:34 | disposition home or self-care (01) | DRG 177 ==
LOC: ANHED 10:15 → ANHICU 18:40 → ANHIMU 10-15 11:32
PROVIDERS: Admitting Provider Internal Medicine; Emergency Provider Emergency Medicine; PCP Internal Medicine; Visit Provider Family Medicine
DX: U07.1 COVID-19 (principal); J12.89 Other viral pneumonia; J96.01 Acute respiratory failure with hypoxia; I10 Essential (primary) hypertension; E78.5 Hyperlipidemia, unspecified
CPT/HCPCS: 36415; 36600; 71045; 80053; 81001; 82375; 82805; 83050; 83605; 83615; 83880; 84145; 84300; 84484; 85025; 85027; 85380; 85610; 85730; 86140; 87040; 87449; 87804; 87899; 93005; 96361; 96365; 96367; 99285; A9270; J0456; J0696; J1650; J7040

== ENCOUNTER 2021-04-06 12:30 | Outpatient (RCR) | payer OTHER, SELFPAY ==
[2021-04-06 12:47] VITALS: BMI 28.3
[2021-04-06 12:48] VITALS: BMI 28.3
== END 2021-05-31 16:42 | disposition home or self-care (01) ==
LOC: ANHDMC 12:30
PROVIDERS: PCP Internal Medicine; Visit Provider Internal Medicine
DX: E11.9 Type 2 diabetes mellitus without complications (principal); Z71.89 Other specified counseling; Z71.3 Dietary counseling and surveillance
CPT/HCPCS: 97802; G0108